=== PATIENT | female | born 1975 | race Caucasian/White ===

== ENCOUNTER 2018-04-07 20:33 | Emergency (ER) | payer SELFPAY ==
[~2018-04-07] VITALS: Ht 165.1 cm; Wt 76.0 kg
[2018-04-07] MEDS ORDERED: TETANUS, DIPHTHERIA, PERTUSSIS VAC/PF 0.5ML (>7YR OLD) IM ONE (23:00)
[2018-04-07] MEDS ORDERED: HYDROCODONE/ACETAMINOPHEN 5/325MG TABLET PO ONE (23:00)
[2018-04-08 02:29] VITALS: BP 118/68
== END 2018-04-08 02:32 | disposition home or self-care (01) ==
LOC: ER 20:33
DX: S81.031A Puncture wound without foreign body, right knee, initial encounter (principal); W26.8XXA Contact with other sharp object(s), not elsewhere classified, initial encounter; Y93.89 Activity, other specified; Y92.9 Unspecified place or not applicable
CPT/HCPCS: 73562; 81025; 90471; 90715; 99284